=== PATIENT | male | born 1995 ===

== ENCOUNTER 2022-02-22 10:19 | Emergency (ER) | payer SELFPAY | END 2022-02-22 10:20 | disposition left against medical advice (07) | LOC: ED 10:19 | DX: R10.30 Lower abdominal pain, unspecified (principal); Z53.21 Procedure and treatment not carried out due to patient leaving prior to being seen by health care provider ==

== ENCOUNTER 2022-02-26 08:48 | Emergency (ER) | payer SELFPAY ==
[2022-02-26 09:19] VITALS: BP 120/72
== END 2022-02-26 20:00 | disposition left against medical advice (07) ==
LOC: ED 08:48
DX: Z11.3 Encounter for screening for infections with a predominantly sexual mode of transmission (principal); Z53.21 Procedure and treatment not carried out due to patient leaving prior to being seen by health care provider